=== PATIENT | male | born 1975 | race Caucasian/White ===

== ENCOUNTER 2024-08-07 14:57 | Emergency (ER) | payer SELFPAY ==
[~2024-08-07] VITALS: Ht 172.7 cm; Wt 72.7 kg
[2024-08-07 19:09] LABS: BASOPHILS # (AUTO) 0.1 X10'3 (0-0.2); BASOPHILS % (AUTO) 0.4 % (0-1); EOSINOPHILS # (AUTO) 0.1 X10'3 (0-0.9); EOSINOPHILS % (AUTO) 0.9 % (0-6); HEMATOCRIT 40.5 % (42.0-52.0); HEMOGLOBIN 13.7 g/dl (14.0-17.9); LYMPHOCYTES # (AUTO) 2.4 X10'3 (1.1-4.8); LYMPHOCYTES % (AUTO) 19.8 % (21-51); MEAN CORPUSCULAR HEMOGLOBIN 29.5 PG (27.0-31.0); MEAN CORPUSCULAR HGB CONC 33.9 g/dL (33.0-36.5); MEAN CORPUSCULAR VOLUME 87.1 FL (78-98); MEAN PLATELET VOLUME 7.2 FL (7.4-10.4); MONOCYTES # (AUTO) 1.8 X10'3 (0-0.9); MONOCYTES % (AUTO) 14.6 % (2-12); NEUTROPHILS # (AUTO) 7.8 X10'3 (1.8-7.7); NEUTROPHILS % (AUTO) 64.3 % (42-75); PLATELET COUNT 316 X10'3 (140-440); RED BLOOD COUNT 4.65 X10'6 (4.70-6.10); RED CELL DISTRIBUTION WIDTH 14.2 % (11.5-14.5); WHITE BLOOD COUNT 12.1 X10'3 (4.5-11.0)
[2024-08-07 19:16] LABS: BILIRUBIN,URINE SMALL (Neg); CLARITY,URINE CLEAR (Clear); COLOR,URINE YELLOW (Yellow); GLUCOSE, URINE NEGATIVE (Neg); KETONES,URINE 40 mg/dl (Neg); LEUKOCYTE ESTERASE ,URINE NEGATIVE (Neg); NITRITES, URINE NEGATIVE (Neg); OCCULT BLOOD,URINE NEGATIVE (Neg); PROTEIN,URINE NEGATIVE (Neg); UROBILINOGEN,URINE 0.2 E.U/dL (0.2-1.0)
[2024-08-07 19:23] LABS: UA COLLECTION TYPE NON-SPECIFIED
[2024-08-07 19:32] LABS: ALBUMIN 3.6 G/DL (3.4-5.0); ANION GAP 11 (8-16); BLOOD UREA NITROGEN 36 MG/DL (7-18); BUN/CREATININE RATIO 36.4 (10.0-20.0); CALCIUM 9.5 MG/DL (8.5-10.1); CHLORIDE 103 MMOL/L (99-107); CREATININE 0.99 MG/DL (0.60-1.10); ETHANOL < 10 MG/DL (<10); GLUCOSE 122 MG/DL (70-104); POTASSIUM 4.1 MMOL/L (3.5-5.1); SODIUM 137 MMOL/L (135-145); THYROID STIMULATING HORMONE 3.88 ulU/ml (0.34-4.50); TOTAL CARBON DIOXIDE 23.4 MMOL/L (24-32); eCRCL 87 ML/MIN; eGFR 80 ML/MIN
[2024-08-07 19:48] LABS: URINE AMPHETAMINE SCREEN POSITIVE (Neg); URINE BARBITUATE SCREEN NEGATIVE (Neg); URINE BENZODIAZEPINES SCREEN NEGATIVE (Neg); URINE CANNABINOID SCREEN NEGATIVE (Neg); URINE COCAINE SCREEN NEGATIVE (Neg); URINE METHADONE SCREEN NEGATIVE (Neg); URINE OPIATE SCREEN NEGATIVE (Neg); URINE PHENCYCLIDINE SCREEN NEGATIVE (Neg)
[2024-08-07] MEDS: diphenhydrAMINE 25mg capsule PO ONE (22:17)
[2024-08-08 13:14] VITALS: BP 110/63; RESP 16; TEMP 98; O2SAT 100
== END 2024-08-08 13:04 | disposition home or self-care (01) ==
LOC: ER 14:58
DX: R45.851 Suicidal ideations (principal); R00.2 Palpitations; R06.02 Shortness of breath; R10.84 Generalized abdominal pain; Z20.822 Contact with and (suspected) exposure to COVID-19
CPT/HCPCS: 36415; 80048; 80305; 80320; 81003; 84443; 84484; 85025; 87811; 93005; 99285; Q0163

== ENCOUNTER 2024-08-26 09:05 | Emergency (ER) | payer SELFPAY ==
[~2024-08-26] VITALS: Ht 172.7 cm; Wt 72.4 kg
[2024-08-26 09:08] VITALS: BP 123/62; PULSE 88; RESP 18; TEMP 97.8; O2SAT 100
== END 2024-08-26 09:45 | disposition home or self-care (01) ==
LOC: ER 09:05
DX: Z02.89 Encounter for other administrative examinations (principal)
CPT/HCPCS: 99281

== ENCOUNTER 2024-09-09 15:30 | Emergency (ER) | payer OTHER ==
[~2024-09-09] VITALS: Ht 172.7 cm; Wt 75.0 kg
[2024-09-09 15:37] VITALS: BP 147/85; PULSE 75; O2SAT 98
[2024-09-09] MEDS ORDERED: BENZ9GEL TOP (15:56)
[2024-09-09] MEDS ORDERED: AMOX-580 PO (15:56)
[2024-09-09 16:05] VITALS: RESP 15
[2024-09-09] MEDS: ketorolac trometh 15mg/ml vial 15 MG/ML ML IM ONE (16:05)
[2024-09-09 16:21] VITALS: TEMP 98.5
== END 2024-09-09 16:12 | disposition home or self-care (01) ==
LOC: ER 15:30
DX: K02.9 Dental caries, unspecified (principal); K08.89 Other specified disorders of teeth and supporting structures
CPT/HCPCS: 96372; 99283; J1885

== ENCOUNTER 2025-02-24 16:32 | Emergency (ER) | payer MEDICAID, OTHER ==
[~2025-02-24] VITALS: Ht 172.7 cm; Wt 61.8 kg
[~2025-02-24 16:32] MED LIST: BENZ9GEL TOP
[2025-02-24 16:35] VITALS: BP 103/55; PULSE 88; TEMP 98.2; O2SAT 98
--- NOTE | 2025-02-24 16:47 | Physician Documentation ---
History of Present Illness ~ Chief Complaint: Medical Clearance Stated Complaint: MED CLEARANCE FOR DETOX Time Seen by MD: 16:42 Primary Medical Doctor: NONE HPI 49-year-old male presents to the ED requesting medical clearance secondary to methamphetamine use. States last time he used was yesterday. Denies any current symptoms Tetanus within 5 years?: No Medication Reconciliation Allergies: Coded Allergies: No Known Allergies (Unverified , 02/24/25) Scheduled Benzocaine (Anbesol), 1 APPLIC TOP Q6H Review of Systems All Other Systems at this time: Reviewed and Negative ROS As stated above in the HPI, otherwise all systems are reviewed and negative. Physical Exam Vital Signs: Temperature: 98.2, Source: Temporal, Heart Rate: 88, Respiratory Rate: 20, BP: 103/55, Pulse Oximetry: 98, Weight: 61.750 Physical Exam General: Alert, no apparent distress. Respiratory: Lungs clear, no respiratory distress. Cardiovascular: Regular rate and rhythm, no murmurs. Neurologic: Oriented x4. Psychiatric: Normal mood and affect. Skin: Normal color, warm and dry. No edema, no ecchymosis. Progress Results/Orders Results/Orders Vital Signs 02/24/25 02/24/25 16:35 16:56 Temp 98.2 Pulse 88 Resp 20 16 B/P (MAP) 103/55 Pulse Ox 98 Medical Decision Making Findings Patient is not tachycardic 9th any chest pain does not present high on methamphetamine or intoxicated any form or fashion. Medically cleared him to go to [facility] Departure Disposition: 01 HOME / SELF CARE / HOMELESS Impression: Primary Impression: General medical exam Discharge Instructions: Medical Screening Exam Additional Instructions: Medically cleared to go to [facility] Referrals: NO PRIMARY CARE PROVIDER (PCP) Signature Scribe Signature: g Attestation: Scribed for Raffi Zavala [employer] Merch[employer]ising Associate by Raffi Mccullough NP . 02/24/25 22:58 RAFFI ZAVALA NP Feb 24, 2025 16:47
[2025-02-24 16:56] VITALS: RESP 16
[2025-03-01] MEDS ORDERED: SULF1TAB49 PO (13:33)
[2025-03-01] MEDS ORDERED: NO HOME MEDS (14:04)
== END 2025-02-24 16:57 | disposition home or self-care (01) ==
LOC: ER 16:34
DX: Z00.8 Encounter for other general examination (principal)
CPT/HCPCS: 99282

== ENCOUNTER 2025-03-18 13:42 | Emergency (ER) | payer MEDICAID ==
[~2025-03-18] VITALS: Ht 172.7 cm; Wt 70.1 kg
[~2025-03-18 13:42] MED LIST changes: +ARIP5TAB53 PO; -BENZ9GEL TOP; +SERT-432 PO
--- NOTE | 2025-03-18 14:24 | Physician Documentation ---
History of Present Illness ~ Chief Complaint: Medical Clearance Stated Complaint: MED CLEARENCE Time Seen by MD: 13:45 Primary Medical Doctor: NONE HPI Patient is Seen today for med clearance for detox program at [facility]. Patient denies any significant past medical history. He does admit to 15 years of methamphetamine use. He denies any congestive heart failure or chest pain or shortness of breath or abdominal pain or nausea, vomiting, diarrhea. Patient has no new or other concern or complaint at this time. Tetanus within 5 years?: No Medication Reconciliation Allergies: Coded Allergies: No Known Allergies (Unverified , 03/01/25) Scheduled Aripiprazole (Aripiprazole), 10 MG PO HS Sertraline HCl (Sertraline HCl), 75 MG PO DAILY Review of Systems Constitutional: Denies: chills, fever, weakness Eyes: Denies: pain, blurred vision ENT: Denies: ear pain, nose pain, throat pain, mouth pain Respiratory: Denies: cough, shortness of breath Cardiovascular: Denies: chest pain, palpitations Gastrointestinal: Denies: abdominal pain, nausea, vomiting Genitourinary: Denies: burning, dysuria Male Genitalia: Denies: penile discharge, testicular pain Neurological: Denies: headache, dizziness Musculoskeletal: Denies: pain, swelling Integumentary: Denies: rash, lesions Allergic/Immunologic: Denies: hives, itching Hematologic/Lymphatic: Denies: no symptoms reported Psychiatric: Denies: depression, anxiety Physical Exam Vital Signs: Temperature: 98.5, Source: Temporal, Heart Rate: 62, Respiratory Rate: 18, BP: 127/77, Pulse Oximetry: 100, Weight: 70.100 Oxygen Flow Rate: 0 Physical Exam General: Awake and Alert, no acute distress. HEENT: Conjunctiva pink, Sclera clear, Mucus Membranes moist. Neck: Supple without masses and tenderness. Resp: Unlabored. Lungs clear to auscultation bilaterally. Heart: Regular Rate and rhythm, normal S1 and S2 without murmur, rub or gallop. Abdomen: Soft and non tender no organomegaly Extremities: No cyanosis,clubbing or edema. Skin: Warm and Dry. Progress Results/Orders Results/Orders Vital Signs 03/18/25 13:44 Temp 98.5 Pulse 62 Resp 18 B/P (MAP) 127/77 Pulse Ox 100 O2 Flow Rate 0 Medical Decision Making Findings Patient is Seen today for med clearance for detox program at [facility]. Patient denies any significant past medical history. He does admit to 15 years of methamphetamine use. He denies any congestive heart failure or chest pain or shortness of breath or abdominal pain or nausea, vomiting, diarrhea. Patient states his last use of methamphetamines was 36-48 hours ago. Patient has no new or other concern or complaint at this time. Patient has vital signs stable and benign history and physical exam findings. Patient is medically cleared for entrance into [facility] for detox from methamphetamines. Patient will return to ED with any worsening, concerning or changing symptoms. Departure Disposition: HOME / SELF CARE / HOMELESS Impression: Primary Impression: Methamphetamine abuse Condition: Improved Discharge Instructions: Medical Screening Exam Additional Instructions: Patient has vital signs stable and benign history and physical exam findings. Patient is medically cleared for entrance into [facility] for detox from methamphetamines. Patient will return to ED with any worsening, concerning or changing symptoms. Referrals: NO PRIMARY CARE PROVIDER (PCP) Signature Scribe Signature: No scribe Attestation: No scribe MOISES JACOBS PAC Mar 18, 2025 14:24
[2025-03-18 14:36] VITALS: BP 126/64; PULSE 77; RESP 16; TEMP 98.5; O2SAT 99
== END 2025-03-18 14:32 | disposition home or self-care (01) ==
LOC: ER 13:43
DX: F15.10 Other stimulant abuse, uncomplicated (principal); Z79.899 Other long term (current) drug therapy
CPT/HCPCS: 99282